=== PATIENT | male | born 1955 | race Caucasian/White ===

== ENCOUNTER 2017-10-15 03:54 | Emergency (ER) | payer OTHER ==
[~2017-10-15] VITALS: Ht 175.3 cm; Wt 87.3 kg
[2017-10-15 03:56] VITALS: TEMP 36.7; Ht 175.3 cm; Wt 87.3 kg
[2017-10-15] MEDS ORDERED: HYDROmorphone INJ 1 MG/ML SYR IV STA (04:07)
[2017-10-15] MEDS ORDERED: KETOROLAC TROMETHAMINE 30 MG/ML VIAL IM STA (04:07)
[2017-10-15] MEDS ORDERED: ONDANSETRON INJ 2 MG/ML 2 ML VIAL IV STA (04:07)
[2017-10-15] MEDS ORDERED: SODIUM CHLORIDE 0.9% 1000ML 1,000 ML IV ONE ×2 (04:15→06:00)
[2017-10-15 04:37] LABS: BASO % 0.2 %; BASO ABS # 0.02 K/uL (0-0.2); EOS % 0.8 %; EOS ABS # 0.09 K/uL (0-0.5); HEMATOCRIT 42.5 % (42-52); HEMOGLOBIN 15.3 g/dL (14.0-18.0); IG# 0.02 K/uL (0.00-0.02); LYMPH % 18.8 %; LYMPH ABS # 2.18 K/uL (1.2-3.4); MEAN CELL VOLUME 92.6 fL (80-100); MEAN CORPUSCULAR HEMOGLOBIN 33.3 pg (25-34); MEAN PLATELET VOLUME 9.6 fL (7.4-10.4); MONO % 6.9 %; NEUT % 73.1 %; PLATELET COUNT 165 K/uL (130-400); RED CELL DISTRIBUTION WIDTH CV 12.8 % (11.5-14.5); RED CELL DISTRIBUTION WIDTH SD 42.9 fL (36.4-46.3); WHITE BLOOD COUNT 11.61 K/uL (4.8-10.8)
[2017-10-15] MEDS ORDERED: LEVO137T3 PO (04:39)
[2017-10-15] MEDS ORDERED: HYDROmorphone INJ 2 MG/ML SYR/VIAL ONE (04:40)
[2017-10-15 04:58] LABS: ALBUMIN 3.8 gm/dl (3.4-5.0); CALCIUM 8.4 mg/dl (8.5-10.1); CREATININE 1.58 mg/dl (0.60-1.40); POTASSIUM 3.7 mmol/L (3.5-5.1)
[2017-10-15 05:01] LABS: TOTAL PROTEIN 7.3 gm/dl (6.4-8.2)
[2017-10-15] MEDS ORDERED: CEFTRIAXONE SOD INJ 1 GM ADDVIAL IV STA (05:55)
[2017-10-15] MEDS ORDERED: CEFD300C2 PO (05:57)
[2017-10-15] MEDS ORDERED: OXYC1TAB3 PO (05:57)
[2017-10-15] MEDS ORDERED: ONDA4TAB10 SL (05:57)
[2017-10-15] MEDS ORDERED: TAMS0.4C38 PO (05:57)
[2017-10-15] MEDS ORDERED: ONDANSETRON HOME PACK 4MG OD TAB PO ONE (06:00)
[2017-10-15] MEDS ORDERED: OXYCODONE IR HOME PACK PO ONE (06:00)
--- NOTE | 2017-10-15 06:26 | EMERGENCY ROOM VISIT NOTE ---
History First contact with patient: 04:03 Chief Complaint: ABDOMINAL PAIN Stated Complaint: SEVERE ABDOMINAL PAIN RIGHT SIDE,VOMITING Nursing Triage Summary: pt reports awaking at 0200 with severe right lower abd pain going into groin pt reports sensation of needing to void pain is severe n/v pale and diaphoretic History of Present Illness The patient is a 61 year old male who presents to the Emergency Room with complaints of severe right lower quadrant abdominal pain radiating into his right side groin. The patient reports that he feels the need to urinate, but is unable to do so. The patient's discomfort began roughly 2 hours ago while he was asleep in bed, and awoke him from sleep. The patient is nauseated without vomiting. No chest pain, chest tightness, or upper abdominal pain. The patient has not taken anything [id number] for his discomfort as he came right to the ER. He rates the pain a 10/10. He has never had symptoms like this in the past. Review of Systems More than 10 systems were reviewed and otherwise negative with the exception of history of present illness. Past Medical/Surgical History No chronic medical disease Family History No pertinent family history Social History Smoking Status: Never Smoker Housing Status: lives with family Current/Historical Medications Scheduled Cefdinir (Omnicef), 300 MG PO Q12H Levothyroxine Sodium (Levothyroxine Sodium), 137 MG PO DAILY Ondasetron Odt (Zofran Odt), 4 MG SL Q6H Oxycodone Immediate Rel Tab (Roxicodone Ir), 1-2 TAB PO Q4H Tamsulosin Hcl (Flomax), 0.4 MG PO DAILY Physical Exam Vital Signs Date Time Temp Pulse Resp B/P (MAP) Pulse Ox O2 Delivery O2 Flow Rate FiO2 10/15/17 05:15 63 20 123/76 94 10/15/17 03:56 36.7 77 16 119/83 98 Room Air Physical Exam VITALS: Vitals are noted on the nurse's note and reviewed by myself. Vital signs stable. GENERAL: Well-developed, well-nourished, white male who appears in moderate to severe discomfort secondary to his stated complaint. He is pacing in the emergency department room holding his right lower quadrant with his right hand. NECK: Supple without nuchal rigidity. No lymphadenopathy. No thyromegaly. Cervical spine is nontender. HEART: Regular rate and rhythm without murmurs gallops or rubs. LUNGS: Clear to auscultation bilaterally without wheezes, rales or rhonchi. No retractions or accessory muscle use. ABDOMEN: Positive normal bowel sounds x 4. Soft, nontender, without masses or organomegaly. No guarding or rebound tenderness. No CVA tenderness. MUSCULOSKELETAL: No muscle atrophy, erythema, or edema noted. Full range of motion in all extremities. Medical Decision & Procedures ER Provider Diagnostic Interpretation: Preliminary Findings Only See Final Report For Complete Findings CT ABDOMEN & PELVIS Without Contrast: Nephrolithiasis with a 2 mm stone in the bladder near the right UVJ with mild right hydronephrosis and perinephric/periureteral stranding. Thickened underdistended bladder. Normal caliber appendix. Fecal-like material in the small bowel suggestive of stasis. No evidence of bowel obstruction. Small hydroceles. Small hiatal hernia. Bibasilar atelectasis/infiltrate. Tiny left lingular nodule (image [id number]). Laboratory Results 10/15/17 04:25 Red Blood Count 4.59, Mean Corpuscular Volume 92.6, Mean Corpuscular Hemoglobin 33.3, Mean Corpuscular Hemoglobin Concent 36.0, Mean Platelet Volume 9.6, Neutrophils (%) (Auto) 73.1, Lymphocytes (%) (Auto) 18.8, Monocytes (%) (Auto) 6.9, Eosinophils (%) (Auto) 0.8, Basophils (%) (Auto) 0.2, Neutrophils # (Auto) 8.50, Lymphocytes # (Auto) 2.18, Monocytes # (Auto) 0.80, Eosinophils # (Auto) 0.09, Basophils # (Auto) 0.02 10/15/17 04:25 Test 10/15/17 04:05 10/15/17 04:25 Urine Color YELLOW Urine Appearance CLOUDY (CLEAR) Urine pH 5.0 (4.5-7.5) Urine Specific [place] 1.031 (1.000-1.030) Urine Protein NEG (NEG) Urine Glucose (UA) NEG (NEG) Urine Ketones NEG (NEG) Urine Occult Blood 2+ (NEG) Urine Nitrite NEG (NEG) Urine Bilirubin NEG (NEG) Urine Urobilinogen NEG (NEG) Urine Leukocyte Esterase NEG (NEG) Urine WBC (Auto) 1-5 /hpf (0-5) Urine RBC (Auto) 5-10 /hpf (0-4) Urine Hyaline Casts (Auto) 5-10 /lpf (0-5) Urine Epithelial Cells (Auto) 20-30 /lpf (0-5) Urine Bacteria (Auto) NEG (NEG) White Blood Count 11.61 K/uL (4.8-10.8) Red Blood Count 4.59 M/uL (4.7-6.1) Hemoglobin 15.3 g/dL (14.0-18.0) Hematocrit 42.5 % (42-52) Mean Corpuscular Volume 92.6 fL (80-100) Mean Corpuscular Hemoglobin 33.3 pg (25-34) Mean Corpuscular Hemoglobin Concent 36.0 g/dl (32-36) Platelet Count 165 K/uL (130-400) Mean Platelet Volume 9.6 fL (7.4-10.4) Neutrophils (%) (Auto) 73.1 % Lymphocytes (%) (Auto) 18.8 % Monocytes (%) (Auto) 6.9 % Eosinophils (%) (Auto) 0.8 % Basophils (%) (Auto) 0.2 % Neutrophils # (Auto) 8.50 K/uL (1.4-6.5) Lymphocytes # (Auto) 2.18 K/uL (1.2-3.4) Monocytes # (Auto) 0.80 K/uL (0.11-0.59) Eosinophils # (Auto) 0.09 K/uL (0-0.5) Basophils # (Auto) 0.02 K/uL (0-0.2) RDW Standard Deviation 42.9 fL (36.4-46.3) RDW Coefficient of Variation 12.8 % (11.5-14.5) Immature Granulocyte % (Auto) 0.2 % Immature Granulocyte # (Auto) 0.02 K/uL (0.00-0.02) Anion Gap 3.0 mmol/L (3-11) Est Creatinine Clear Calc Drug Dose 52.4 ml/min Estimated GFR () 53.2 Estimated GFR (Non- 45.9 BUN/Creatinine Ratio 16.1 (10-20) Calcium Level 8.4 mg/dl (8.5-10.1) Total Bilirubin 0.3 mg/dl (0.2-1) Aspartate Amino Transf (AST/SGOT) 28 U/L (15-37) Alanine Aminotransferase (ALT/SGPT) 30 U/L (12-78) Alkaline Phosphatase 82 U/L (45-117) Total Protein 7.3 gm/dl (6.4-8.2) Albumin 3.8 gm/dl (3.4-5.0) Globulin 3.5 gm/dl (2.5-4.0) Albumin/Globulin Ratio 1.1 (0.9-2) Lipase 776 U/L (73-393) Medications Administered Medications (Trade) Dose Ordered Sig/Alvarez Route Start Time Stop Time Status Last Admin Dose Admin Ketorolac Tromethamine (Toradol Inj) 30 mg NOW STAT IM 10/15/17 04:07 10/15/17 04:09 DC 10/15/17 04:36 30 MG Hydromorphone HCl (Dilaudid Inj) 1 mg NOW STAT IV 10/15/17 04:07 10/15/17 04:09 DC 10/15/17 04:36 1 MG Ondansetron HCl (Zofran Inj) 4 mg NOW STAT IV 10/15/17 04:07 10/15/17 04:09 DC 10/15/17 04:35 4 MG Sodium Chloride 1,000 ml @ 999 mls/hr Q1H1M ONCE IV 10/15/17 04:15 10/15/17 05:15 DC 10/15/17 04:37 999 MLS/HR Ceftriaxone Sodium (Rocephin Inj) 1 gm NOW STAT IV 10/15/17 05:55 10/15/17 05:56 DC 10/15/17 05:55 1 GM ED Course Physical exam and history were performed. Nursing notes, EMR, and Medication List were personally reviewed. Patient appears to have severe right lower quadrant abdominal pain radiating into his right side groin. The patient does not have reproducible tenderness on palpation. IV access was established and labs were obtained. The patient was given IV Toradol, IV Dilaudid, IV Zofran, and IV fluids. Because of concern for possible ureteral calculi versus other etiology I did elect perform a CT scan of the abdomen and pelvis. Urine was collected and was with blood. The patient's blood work is as above and was reviewed. He does have a minimally elevated white blood cell count of 11,000. He does not have a gross anemia or significant electrolyte imbalance. His creatinine is slightly elevated at 1.58, and we do not have another creatinine for baseline comparison. The patient's lipase and transaminases were nondiagnostic. His CT scan does reveal a right ureteral calculi that seems very distal and is likely the etiology of his symptoms. There is also suggestion of a possible lower infiltrate of the lungs, however the patient is not having symptoms of this at this time. Because of the patient's findings on labs and CT I did give him another liter of fluids as well as a dose of Rocephin. On reevaluation he was able to sleep comfortably in his emergency department bed with almost complete resolution of his pain. I discussed options of care with the patient, who feels comfortable with discharge home. He will be given a course of oxycodone, Zofran, Flomax, and Omnicef. This should cover any possible pulmonary versus urine infection. The patient will need to follow with urology and I did give him appropriate information to do so. The patient was thoroughly invited to return to the ER with any new, worsening, or concerning symptoms. He voiced understanding and rated his discomfort a 1/10 at the time of departure. He was discharged home under the care of his who is acting as a waste collection driver today. The chart was completed utilizing [employer] Speech Voice Recognition Software. Grammatical errors, random word insertions, pronoun errors, and incomplete sentences are an occasional consequence of this system due to software limitations, ambient noise, and hardware issues. Any formal questions or concerns about the content, text, or information contained within the body of this dictation should be directly addressed to the provider for clarification. . Medical Decision Differential diagnosis: Etiologies such as renal colic, appendicitis, diverticulitis, mesenteric ischemia, aortic pathology, infections, inflammatory bowel disease, PUD, biliary pathology, UTI, as well as others were entertained. Impression Primary Impression: Right ureteral calculus Departure Information Dispostion Home / Self-Care Condition GOOD Prescriptions Cefdinir (OMNICEF) 300 Mg Cap 300 MG PO Q12H for 7 Days, #14 CAP Prov: Beck Carr PA-C 10/15/17 Tamsulosin Hcl (FLOMAX) 0.4 Mg Cap 0.4 MG PO DAILY for 7 Days, #7 CAP Prov: Beck Carr PA-C 10/15/17 Ondasetron Odt (ZOFRAN ODT) 4 Mg Tab 4 MG SL Q6H for Nausea, #12 TAB Prov: Beck Carr PA-C 10/15/17 Oxycodone Immediate Rel Tab (ROXICODONE IR) 5 Mg Tab 1-2 TAB PO Q4H for Pain, #24 TAB Initial treatment Prov: Beck Carr PA-C 10/15/17 Referrals Robert Damon MD, Urology Forms Call Back Authorization, HOME CARE DOCUMENTATION FORM, Work Instructions, Additional Instructions: Patient was seen and evaluated today in the emergency department fo medical care. Return to work on 10/18/2017. Please excuse. IMPORTANT VISIT INFORMATION Patient Instructions [facility], ED Stone Renal W Colic Additional Instructions You were seen and evaluated today on an emergency basis only. This is not a substitute for, or an effort to provide, complete comprehensive medical care. It is not possible to recognize and treat all injuries or illnesses in a single emergency department visit. For this reason it is recommended that you followup with Urology, Dr. Damon's office, for ongoing care and evaluation. Call in the morning to make the appointment. For baseline pain relief you may alternate ibuprofen and acetaminophen every 4 hours for pain control. Take 600 mg ibuprofen (Advil) and then 4 hours later take 1000 mg acetaminophen (Tylenol). Do not take more than 3000 mg acetaminophen in a single day. Oxycodone (OxyIR) 5mg: Take ONE or TWO pills every FOUR to SIX hours for breakthrough pain. Avoid alcohol, operating machinery or dangerous equipment, working on ladders or roofs, DRIVING, or situations where being under the influence may be dangerous. It is recommended to use an [id number] stool softener such as Colace, 100mg twice daily while taking this medication to avoid constipation. Zofran 4 mg ODT: Dissolve 1 tablet every 6 hrs as needed for nausea. Take Flomax once daily Take Omnicef 300 mg twice daily for the next 7 days You are welcome to return to the emergency department anytime with new, worsening, or concerning symptoms. Work Instructions Additional Work Instructions: Patient was seen and evaluated today in the emergency department for medical care. Return to work on 10/18/2017. Please excuse.
[2017-10-15 07:06] VITALS: BP 125/77; PULSE 69; O2SAT 98
--- NOTE | 2017-10-15 07:23 | DIAGNOSTIC IMAGING REPORT ---
CT SCAN OF THE ABDOMEN AND PELVIS WITHOUT IV CONTRAST CLINICAL HISTORY: Right flank pain. COMPARISON STUDY: No priors. TECHNIQUE: CT scan of the abdomen and pelvis is performed from the lung bases to the proximal femora. Images are reviewed in the axial, sagittal, and coronal planes. IV contrast was not administered for this examination as per the referring clinician. A dose lowering technique was utilized adhering to the principles of ALARA. CT DOSE: 883.44 mGy.cm FINDINGS: Lung bases: The heart is normal in size and without pericardial effusion. The coronary arteries are densely calcified. The lung bases are clear noting bibasilar atelectasis. There is a small hiatal hernia. Liver: The unenhanced liver is normal in size, contour, and attenuation. There is no intrahepatic biliary ductal dilatation. Gallbladder: Unremarkable. Spleen: Normal in size and attenuation. Pancreas: The unenhanced pancreas is grossly unremarkable. Adrenal glands: Unremarkable. Kidneys: The unenhanced kidneys are normal in size. There is a 4 mm obstructing calculus at the right vesicoureteral junction seen on image #40 and 35. This causes mild to moderate right hydroureteronephrosis. There is associated right-sided perinephric and periureteric stranding and fluid. An additional punctate nonobstructing calculus is seen in the interpolar right kidney. No left renal calculi are identified and there is no left-sided hydronephrosis. There is no evidence of contour deforming renal mass lesion. Abdominal vasculature: The abdominal aorta is normal in course and caliber. Bowel: The a chronically torsed epiploic appendage is seen adjacent to the sigmoid colon in the pelvis. There is mild colonic fecal retention. No bowel obstruction is seen. The appendix is well-visualized and normal. Peritoneum: There is no intraperitoneal free air or abdominal ascites. There is a small fat-containing umbilical hernia. Lymphadenopathy: None. Pelvic viscera: The bladder is decompressed and grossly unremarkable. The prostate and seminal vesicles are normal as visualized. Skeletal structures: The skeletal structures are osteopenic. Mild to moderate lumbosacral spondylosis is observed. No lytic or blastic lesions are seen. IMPRESSION: 1. There is a 4 mm obstructing calculus at the right vesicoureteral junction. This causes mild to moderate right hydroureteronephrosis. 2. An additional punctate nonobstructing calculus is seen in the right kidney. 3. The coronary arteries are densely calcified. Consider nonemergent cardiology follow-up. Electronically signed by: Remberto Saleh M.D. 10/15/2017 7:21 AM Dictated Date/Time: 10/15/2017 7:17 AM
== END 2017-10-15 07:08 | disposition home or self-care (01) ==
LOC: C.EDB 03:55 → C.EDA 07:08
DX: N20.1 Calculus of ureter (principal)